=== PATIENT | female | born 1970 | race Caucasian/White ===

== ENCOUNTER → 2021-09-12 | Outpatient (CLI) | payer OTHER ==
[~2021-09-12] MED LIST: FLEXERIL; FLONASE 0.05%50 MCG; GLUCOPHAGE500 MG; GLYBURIDE 2.52.5 M1 PO; LISINOPRIL40 MG PO; LISINOPRIL5 MG PO; LOVASTAT20; NORCO 5-325 TA1 EACH PO; ULTRAM 50MG TAB50 MG
[2021-09-12 09:49] LABS: ABSOLUTE NEUTROPHILS 4.5 thou/uL (1.4-8.2); BASOPHILS 1.3 % (0.0-2.0); EOSINOPHILS 1.7 % (0.0-3.0); HEMATOCRIT 43.5 % (37.0-47.0); HEMOGLOBIN 14.5 gm/dL (12.0-15.0); LYMPHOCYTES 30.8 % (24.0-44.0); MCH 27.4 pg (26.0-34.0); MCHC 33.3 g/dL (28.0-37.0); MCV 82.4 fL (80.0-100.0); MONOCYTES 4.8 % (1.0-8.0); PLATELET COUNT 214 thou/uL (150-400); POLYS 61.4 % (36.0-66.0); RBC 5.28 mil/uL (4.20-5.00); RDW 13.7 % (10.5-14.5); WBC 7.4 thou/uL (4.0-11.0)
[2021-09-12 10:08] LABS: ALBUMIN 3.8 g/dL (3.4-5.0); ANION GAP 11 mmol/L (7-16); BUN 9 mg/dL (7-18); CALCIUM 8.6 mg/dL (8.5-10.1); CHLORIDE 101 mmol/L (98-107); CHOLESTEROL 237 mg/dL (<200); CO2 27 mmol/L (21-32); CREATININE 0.9 mg/dL (0.6-1.0); GLUCOSE 150 mg/dL (74-106); HDL CHOLESTEROL 36 mg/dL (>40); LDL CHOLESTEROL 152 mg/dL (<100); POTASSIUM 3.4 mmol/L (3.5-5.1); SGOT 20 U/L (15-37); SGPT 30 U/L (30-65); SODIUM 139 mmol/L (136-145); TC:HDL 6.6 Ratio (Not establshd); TOTAL BILIRUBIN 0.2 mg/dL (0.2-1.0); TOTAL PROTEIN 7.9 g/dL (6.4-8.2); TRIGLYCERIDE 245 mg/dL (<150); VLDL 49 mg/dL (<40)
[2021-09-12 10:09] LABS: URINE BILIRUBIN NEGATIVE (Negative); URINE BLOOD NEGATIVE (Negative); URINE CLARITY CLEAR; URINE COLOR YELLOW; URINE GLUCOSE-RANDOM* 3+ (Negative); URINE KETONES NEGATIVE (Negative); URINE LEUKOCYTES NEGATIVE (Negative); URINE NITRITE NEGATIVE (Negative); URINE PROTEIN (DIPSTICK) NEGATIVE (Negative); URINE UROBILINOGEN 0.2 E.U./dl (0.2-1.0)
[2021-09-12 11:24] LABS: SQUAMOUS 4-10 Moderate /LPF (0-3)
[2021-09-12 11:25] LABS: BACTERIA 1-9 Few /HPF (None Seen); CASTS None Seen /LPF (None Seen); URINE RBC 1-2 Rare /HPF (NONE SEEN); URINE WBC None Seen /HPF (NONE SEEN)
[2021-09-12 11:26] LABS: CRYSTALS None Seen /LPF (None Seen)
[2021-09-13 01:06] LABS: GLYCOHEMOGLOBIN (HGB A1C) 7.2 % (4.8-5.6)
[2021-09-13 08:08] LABS: LUTEINIZING HORMONE (LH) 9.3 mIU/mL (()); TESTOSTERONE* < 3 ng/dL (4-50)
== END ==
LOC: ULTRA 08:16 → LAB 08:16
PROVIDERS: ATTEND Nurse Practitioner
DX: E11.65 Type 2 diabetes mellitus with hyperglycemia (principal); R23.2 Flushing; N63.0 Unspecified lump in unspecified breast; N64.4 Mastodynia